=== PATIENT | male | born 1965 | race Caucasian/White ===

== ENCOUNTER 2023-10-06 09:04 | Outpatient (OUT) | payer OTHER, SELFPAY ==
[2023-10-06 09:20] LABS: Basophils Absolute Auto 0.1 10^3/uL (0.0-0.1); Basophils Percent Auto 0.4 % (0.2-2.0); Eosinophils Absolute Auto 0.2 10^3/uL (0.0-0.7); Eosinophils Percent Auto 1.5 % (0.9-7.0); Hematocrit 42.8 % (42.0-54.0); Immature Granulocytes Abs Auto 0.05 10^3/uL (0.00-0.03); Immature Granulocytes Pct Auto 0.4 % (0.0-0.5); Lymphocytes Absolute Auto 1.5 10^3/uL (1.2-3.8); Lymphocytes Percent Auto 13.4 % (20.5-60.0); Mean Corpuscular HGB Conc 32.7 g/dL (29.9-35.2); Mean Corpuscular Hemoglobin 28.6 pg (25.9-34.0); Mean Corpuscular Volume 87.5 fL (80.0-94.0); Mean Platelet Volume 10.3 fL (9.5-13.5); Monocytes Absolute Auto 0.6 10^3/uL (0.3-0.8); Monocytes Percent Auto 5.6 % (1.7-12.0); Neutrophils Absolute Auto 8.9 10^3/uL (1.4-6.5); Neutrophils Percent Auto 78.7 % (43.0-75.0); Platelet Count 327 10^3/uL (150-450); Red Blood Count 4.89 10^6/uL (4.70-6.10); Red Cell Distribution Width 12.7 % (11.0-15.0); White Blood Count 11.3 10^3/uL (4.0-11.0)
[2023-10-06 09:51] LABS: Alanine Aminotransferase 63 U/L (16-63); Albumin Globulin Ratio 0.9; Albumin Level 3.5 g/dL (3.4-5.0); Alkaline Phosphatase 115 U/L (46-116); Anion Gap 12.5; Aspartate Amino Transferase 35 U/L (15-37); Bilirubin Total 0.5 mg/dL (0.2-1.0); Chloride 105 mmol/L (98-107); Chol HDL Ratio 4.1; Cholesterol 182 mg/dL (<=200); Estimated GFR (African America >60 (>=60); Estimated GFR (Non-African Ame >60 (>=60); Free T3 2.19 pg/mL (2.18-3.98); Globulin 3.9 g/dL; Glucose 95 mg/dL (74-106); HDL Cholesterol 44 mg/dL (40-60); Potassium 4.5 mmol/L (3.5-5.1); Sodium 144 mmol/L (136-145); Thyroid Stimulating Hormone 1.331 uIU/mL (0.358-3.740); Total Protein 7.4 g/dL (6.4-8.2); Triglycerides 105 mg/dL (<=150); Uric Acid 8.9 mg/dL (3.5-7.2)
[2023-10-06 10:02] LABS: Estimated Average Glucose 120 mg/dL; Glycohemoglobin A1C 5.8 % (4.5-6.2)
[2023-10-08 12:08] LABS: Insulin 34.4 uIU/mL (2.6-24.9)
== END 2023-10-06 09:05 | disposition home or self-care (01) ==
LOC: LAB 09:07
PROVIDERS: PCP Family Medicine; Visit Provider Family Medicine
DX: Z00.00 Encounter for general adult medical examination without abnormal findings (principal); E78.5 Hyperlipidemia, unspecified; R73.09 Other abnormal glucose; Z12.5 Encounter for screening for malignant neoplasm of prostate
CPT/HCPCS: 36415; 80053; 80061; 83036; 83525; 84436; 84443; 84481; 84550; 85025; G0103

== ENCOUNTER 2023-10-26 13:48 | Outpatient (OUT) | payer OTHER, SELFPAY ==
--- OUTSIDE RECORDS SUMMARY | 2023-10-26 14:04 | XMS_ITS | CCD ---
Author Name Unknown Address [address] [place] [address] Organization [facility] Care Team Providers Care Digital Advertising Analyst Name Role Phone HECTOR SHETH Admitting Unavailable HECTOR SHETH Attending Unavailable HECTOR SHETH Consulting Unavailable [facility] Primary Care Provider JUANA LEAL Admitting Unavailable ELVIS JUANA HNelli Attending Unavailable [facility] Unavailable JUANA LEAL HNelli Attending Unavailable ELVIS JUANA HNelli Referring Unavailable [facility] Primary Care Unavailable MARKER, DR KIM Admitting Unavailable PAYTON, DR RAWLS Primary Care Unavailable MARKER, DR KIM Consulting Unavailable MARKER, DR KIM Attending Unavailable HOY, DR RAWLS Consulting Unavailable HOY, DR RAWLS Attending Unavailable HOY, DR RAWLS Admitting Unavailable PAYTON, DR RAWLS Primary Care Unavailable ZIEBER, DR GANN R Consulting Unavailable Medications Current Medications Medication Drug Class(es) Dates Sig (Normalized) Sig (Original) acetaminophen 325 mg / oxyCODONE hydrochloride 5 mg oral tablet (2 sources) Opioid Agonist Start: 03-23-2020 End: 04-06-2020 take 1 tablet by mouth every six hours as needed for pain, then take 1 tablet by mouth as needed for pain oxyCODONE-acetaminop hen (PERCOCET) 5-325 MG per tablet Indications: Postoperative pain Take 1 tablet by mouth every 6 hours as needed for Pain for up to 14 days. Intended supply: 7 days. Take lowest dose possible to manage pain 28 tablet 0 03/23/2020 04/06/2020 Active calcium chloride 0.0014 meq/ml / potassium chloride 0.004 meq/ml / sodium chloride 0.103 meq/ml / sodium lactate 0.028 meq/ml injectable solution (1 source) Start: 03-23-2020 lactated ringers infusion cephalexin 500 mg oral capsule (2 sources) Cephalosporin Antibacterial Start: 03-23-2020 End: 03-30-2020 take 1 capsule by mouth three times daily cephALEXin (KEFLEX) 500 MG capsule Take 1 capsule by mouth 3 times daily for 7 days 21 capsule 0 03/23/2020 03/30/2020 Active 1 ml diphenhydrAMINE hydrochloride 50 mg/ml cartridge (1 source) Histamine-1 Receptor Antagonist Start: 03-23-2020 End: 03-23-2020 diphenhydrAMINE (BENADRYL) injection 12.5 mg 2 ml fentaNYL 0.05 mg/ml injection (1 source) Opioid Agonist Start: 03-23-2020 fentaNYL (SUBLIMAZE) injection 50 mcg 1 ml HYDROmorphone hydrochloride 1 mg/ml cartridge (1 source) Opioid Agonist Start: 03-23-2020 HYDROmorphone (DILAUDID) injection 0.5 mg 10 ml lidocaine hydrochloride 10 mg/ml injection (1 source) Antiarrhythmic, Amide Local Anesthetic Start: 03-23-2020 End: 03-23-2020 lidocaine PF 1 % injection 1 mL 1 ml meperidine hydrochloride 25 mg/ml cartridge (1 source) Opioid Agonist Start: 03-23-2020 meperidine (DEMEROL) injection 12.5 mg 2 ml metoclopramide 5 mg/ml prefilled syringe (1 source) Dopamine-2 Receptor Antagonist Start: 03-23-2020 End: 03-23-2020 metoclopramide (REGLAN) injection 10 mg 2 ml ondansetron 2 mg/ml injection (1 source) Serotonin-3 Receptor Antagonist Start: 03-23-2020 End: 03-23-2020 ondansetron (ZOFRAN) injection 4 mg sennosides, shelter 8.6 mg oral tablet (2 sources) Start: 03-23-2020 End: 04-06-2020 take 1 tablet by mouth twice daily senna (SENOKOT) 8.6 MG tablet Take 1 tablet by mouth 2 times daily for 14 days 28 tablet 0 03/23/2020 04/06/2020 Active 3 ml sodium chloride 9 mg/ml injection (2 sources) Start: 03-23-2020 sodium chloride flush 0.9 % injection 10 mL tiZANidine 4 mg oral tablet (2 sources) Central alpha-2 Adrenergic Agonist take 1 tablet by mouth every six hours as needed tiZANidine (ZANAFLEX) 4 MG tablet Take 4 mg by mouth every 6 hours as needed 0 Active Completed/Discontinued Medications Medication Drug Class(es) Dates Sig (Normalized) Sig (Original) ketorolac tromethamine 10 mg oral tablet (1 source) Nonsteroidal Anti-inflammatory Drug, Cyclooxygenase Inhibitor End: 03-23-2020 take 1 tablet by mouth every six hours as needed for pain ketorolac (TORADOL) 10 MG tablet Take 10 mg by mouth every 6 hours as needed for Pain 0 03/23/2020 Discontinued (Stop Taking at Discharge) Problems Active Problems Problem Classification Problem Date Documented Date Episodic/Chronic Gout and other crystal arthropathies (1 source) Idiopathic gout, left ankle and foot; Translations: [IDIOPATHIC GOUT LEFT ANKLE AND FOOT] Onset: 03-17-2021 Chronic Osteoarthritis (4 sources) Primary osteoarthritis, right wrist; Translations: [PRIMARY OSTEOARTHRITIS RIGHT WRIST] Onset: 01-26-2022 Chronic Other nervous system disorders (1 source) Postoperative pain ; Translations: [Postoperative pain] Episodic Residual codes; unclassified (1 source) Pain; Translations: [Pain] Episodic Spondylosis; intervertebral disc disorders; other back problems (4 sources) Prolapsed lumbar intervertebral disc; Translations: [Lumbar spondylosis] Onset: 03-17-2020 03-17-2020 Chronic Spondylosis; intervertebral disc disorders; other back problems (2 sources) Lumbar radiculopathy; Translations: [Lumbar radiculopathy] Onset: 03-17-2020 03-17-2020 Episodic Unclassified (3 sources) ENC GEN ADULT EXAM W/O ABNORM FIND; Translations: [ENC GEN ADULT EXAM W/O ABNORM FIND] Onset: 12-09-2018 Past or Other Problems Problem Classification Problem Date Documented Da te Episodic/Chronic Other connective tissue disease (3 sources) Pain in left toe(s); Translations: [PAIN IN LEFT TOES] Onset: 03-15-2021 Episodic Results Test Name Value Interpretation Reference Range Facil ity FLUORO FOR SURGICAL PROCEDUR ESon 03-23-2020 FLUORO FOR SURGICAL PROCEDURES FLUORO FOR SURGICAL PROCEDURES : 03/23/2020 2:56 PM CLINICAL HISTORY: R52 Pain ICD10. COMPARISON: None available. Intraoperative fluoroscopy was provided for Dr. Leal procedure. A total of 5.4 seconds of fluoroscopy was used, with 2 fluoroscopic stills saved. No diagnostic images were obtained. Please see Dr. Leal surgical notes for completeness. Interpreted by: Martín Benoit MD Signed by: Martín Benoit MD 03/23/20 Final result Normal [facility] FLUORO FOR SURGICAL PROCEDURES : 03/23/2020 2:56 PM CLINICAL HISTORY: R52 Pain ICD10. COMPARISON: None available. Intraoperative fluoroscopy was provided for Dr. Leal procedure. A total of 5.4 seconds of fluoroscopy was used, with 2 fluoroscopic stills saved. No diagnostic images were obtained. Please see Dr. Leal surgical notes for completeness. [place], [place] Brendan, Chpo Incoming Radiant Results From [facility]acs - 03/23/2020 4:37 PM EDT FLUORO FOR SURGICAL PROCEDURES : 03/23/2020 2:56 PM CLINICAL HISTORY: R52 Pain ICD10. COMPARISON: None available. Intraoperative fluoroscopy was provided for Dr. Leal procedure. A total of 5.4 seconds of fluoroscopy was used, with 2 fluoroscopic stills saved. No diagnostic images were obtained. Please see Dr. Leal surgical notes for completeness. [place], [place] Surgical Specimenon 03-23-20 20 Surgical Specimen [facility] [address] [place], [place] [id number] FINAL SURGICAL PATHOLOGY REPORT Patient Name: UZIEL REDDY Accession No: [id number] Age Sex: 1965 Location: [facility] Account No: [id number] Collected: 03/23/2020 Med Rec No: [id number] Received: 03/24/2020 Attend Phys: JUANA LEAL Completed: 03/26/2020 Perform Phys: JUANA LEAL FINAL DIAGNOSIS: DISC- INTRAVERTEBRAL DISC MATERIAL WITH DEGENERATIVE CHANGES. ALIFA/ALIFA CLINICAL INFORMATION: Procedure: L4-5 left discectomy. Preoperative Diagnosis: Lumbar disc herniation. SPECIMEN: Disc GROSS DESCRIPTION: Received is one container labeled with the patient's name and designated spine, disc . The specimen consists of portions of pink-white, rubbery soft tissue and possible small fragments of bone 2 x 1.5 x 0.3 cm in aggregate. The specimen is submitted in toto in one cassette following decalcification. ZHOU/MERRILL CPT: 44749 X1 64627 X1 KENDALL DELGADO M.D. 03/26/2020 Electronically signed out by Page 1 of 1 [facility] Comment on above: Performed By: #### S UR #### [facility] [address] [place] [address] COVID-19, NAAon 03-20-2020 COVID-19, LAINEY Not Detected Normal Not Detect [facility] Comment on above: Result Comment: This test was developed and its performance characteristics determined by [employer]. This test has not been FDA cleared or approved. This test has been authorized by FDA under an Emergency Use Authorization (EUA). This test is only authorized for the duration of time the declaration that circumstances exist justifying the authorization of the emergency use of in vitro diagnostic tests for detection of SARS-CoV-2 virus and/or diagnosis of COVID-19 infection under section 564(b)(1) of the Act, 21 U.S.C. 360bbb-3(b)(1), unless the authorization is terminated or revoked sooner. When diagnostic testing is negative, the possibility of a false negative result should be considered in the context of a patient's recent exposures and the presence of clinical signs and symptoms consistent with COVID-19. An individual without symptoms of COVID-19 and who is not shedding SARS-CoV-2 virus would expect to have a negative (not detected) result in this assay. Performed at: [facility] [employer] [facility][1], [place] [id number] Shingle Sawyer: Maris Vallejo MD, Phone: [phone] Performed By: #### I RCOV #### [facility] [address] [place] [address] Basic Metabolic Panelon Anion gap [Moles/Vol] 10 mmol/L Normal 9-15 [facility] Comment on above: Performed By: #### B MP #### [facility] [address] [place] [address] Calcium [Mass/Vol] 9.7 mg/dL Normal 8.5-9.9 [facility] Comment on above: Performed By: #### B MP #### [facility] [address] [place] [address] Chloride [Moles/Vol] 96 mmol/L Normal 95-107 [facility] Comment on above: Performed By: #### B MP #### [facility] [address] [place] [address] CO2 [Moles/Vol] 30 mmol/L Normal 20-31 [facility] Comment on above: Performed By: #### B MP #### [facility] [address] [place] [address] Creatinine [Mass/Vol] 0.66 mg/dL Low 0.70-1.20 [facility] Comment on above: Performed By: #### B MP #### [facility] [address] [place] [address] GFR/1.73 sq M predicted among blacks MDRD (S/P/Bld) [Vol rate/Area] mL/min/{1.73_m2} Normal >60 [facility] Comment on above: Result Comment: >60 mL/min/1.73m2 EGFR, calc. for ages 18 and older using the MDRD formula (not corrected for weight), is valid for stable renal function. Performed By: #### B MP #### [facility] [address] [place] [address] GFR/1.73 sq M.predicted MDRD (S/P/Bld) [Vol rate/Area] mL/min/{1.73_m2} Normal >60 [facility] Comment on above: Result Comment: >60 mL/min/1.73m2 EGFR, calc. for ages 18 and older using the MDRD formula (not corrected for weight), is valid for stable renal function. Performed By: #### B MP #### [facility] [address] [place] [address] Glucose [Mass/Vol] 83 mg/dL Normal 70-99 [facility] Comment on above: Performed By: #### B MP #### [facility] [address] [place] [address] Potassium [Moles/Vol] 4.3 mmol/L Normal 3.4-4.9 [facility] Comment on above: Performed By: #### B MP #### [facility] [address] [place] [address] Sodium [Moles/Vol] 136 mmol/L Normal 135-144 [facility] Comment on above: Performed By: #### B MP #### [facility] [address] [place] [address] Urea nitrogen [Mass/Vol] 14 mg/dL Normal 6-20 [facility] Comment on above: Performed By: #### B MP #### [facility] [address] [place] [address] CBC With Platelet and Differ entialon 03-17-2020 RBC morphology finding Nom (Bld) Normal Normal [facility] Comment on above: Performed By: #### C BCWD #### [facility] [address] [place] [address] Atypical Lymphs 5 % Normal [facility] Comment on above: Performed By: #### C BCWD #### [facility] [address] [place] [address] Basophils (Bld) [#/Vol] 0.0 10*3/uL Normal 0.0-0.2 [facility] Comment on above: Performed By: #### C BCWD #### [facility] [address] [place] [address] Basophils/100 WBC (Bld) 0.6 % Normal [facility] Comment on above: Performed By: #### C BCWD #### [facility] [address] [place] [address] Eosinophils (Bld) [#/Vol] 0.1 10*3/uL Normal 0.0-0.7 [facility] Comment on above: Performed By: #### C BCWD #### [facility] [address] [place] [address] Eosinophils/100 WBC (Bld) 1.0 % Normal [facility] Comment on above: Performed By: #### C BCWD #### [facility] [address] [place] [address] Lymphocytes (Bld) [#/Vol] 1.4 10*3/uL Normal 1.0-4.8 [facility] Comment on above: Performed By: #### C BCWD #### [facility] [address] [place] [address] Lymphocytes/100 WBC (Bld) 7.0 % Normal [facility] Comment on above: Performed By: #### C BCWD #### [facility] [address] [place] [address] Monocytes (Bld) [#/Vol] 1.0 10*3/uL Critically high 0.2-0.8 [facility] Comment on above: Performed By: #### C BCWD #### [facility] [address] [place] [address] Monocytes/100 WBC (Bld) 9.0 % Normal [facility] Comment on above: Performed By: #### C BCWD #### [facility] [address] [place] [address] Neutrophils (Bld) [#/Vol] 8.9 10*3/uL Critically high 1.4-6.5 [facility] Comment on above: Performed By: #### C BCWD #### [facility] [address] [place] [address] Neutrophils/100 WBC (Bld) 78.0 % Normal [facility] Comment on above: Performed By: #### C BCWD #### [facility] [address] [place] [address] Platelet Slide Review Normal Normal [facility] Comment on above: Performed By: #### C BCWD #### [facility] [address] [place] [address] Smudge Cells 9.9 Normal [facility] Comment on above: Performed By: #### C BCWD #### [facility] [address] [place] [address] Erythrocyte distribution width (RBC) [Ratio] 14.0 % Normal 11.5-14.5 [facility] Comment on above: Performed By: #### C BCWD #### [facility] [address] [place] [address] Hematocrit (Bld) [Volume fraction] 47.7 % Normal 42.0-52.0 [facility] Comment on above: Performed By: #### C BCWD #### [facility] [address] [place] [address] Hemoglobin (Bld) [Mass/Vol] 15.6 g/dL Normal 14.0-18.0 [facility] Comment on above: Performed By: #### C BCWD #### [facility] [address] [place] [address] MCH (RBC) [Entitic mass] 29.7 pg Normal 27.0-31.3 [facility] Comment on above: Performed By: #### C BCWD #### [facility] [address] [place] [address] MCHC (RBC) [Mass/Vol] 32.8 % Low 33.0-37.0 [facility] Comment on above: Performed By: #### C BCWD #### [facility] [address] [place] [address] MCV (RBC) [Entitic vol] 90.7 fL Normal 80.0-100.0 [facility] Comment on above: Performed By: #### C BCWD #### [facility] [address] [place] [address] Platelets (Bld) [#/Vol] 320 10*3/uL Normal 130-400 [facility] Comment on above: Performed By: #### C BCWD #### [facility] [address] [place] [address] RBC (Bld) [#/Vol] 5.26 10*6/uL Normal 4.70-6.10 [facility] Comment on above: Performed By: #### C BCWD #### [facility] [address] [place] [address] WBC (Bld) [#/Vol] 11.4 10*3/uL Critically high 4.8-10.8 [facility] Comment on above: Performed By: #### C BCWD #### [facility] [address] [place] [address] COVID-19, NAAon 03-17-2020 Source Swab OP swab Normal [facility] Comment on above: Performed By: #### I RCOV #### [facility] [address] [place] [address] Partial Thromboplastin Timeo n 03-17-2020 aPTT Coag (Bld) [Time] 32.3 s Normal 24.4-36.8 [facility] Comment on above: Performed By: #### P TT #### [facility] [address] [place] [address] Prothrombin Timeon 0 INR Coag (PPP) [Relative time] 1.0 {INR} Normal [facility] Comment on above: Performed By: #### P T #### [facility] [address] [place] [address] PT Coag (PPP) [Time] 12.9 s Normal 12.3-14.9 [facility] Comment on above: Performed By: #### P T #### [facility] [address] [place] [address] Type and 3 cell Screen OB Ca ptureon 03-17-2020 Type and 3 cell Screen OB Capture PATIENT: BARRY Amezcua LOC: [facility]# : [id number] : 1965 SEX: M ORDERED BY: ERIC Velarde ORDERED : 03/17/2020 13:03 COLLECTED: 03/17/2020 13:04 ORDER : [id number] RECEIVED : 03/17/2020 20:34 TEST NAME RESULT UNITS RANGES ABN FL ST ABORH Capture O POS F Antibody 3 Cell Scrn Captu NEG F Normal [facility] Comment on above: Performed By: #### T SO3C #### [facility] [address] [facility] [address] Vital Signs Date Time Vital Sign Value Performing Clinician Shira gamboa 03-23-2020 17:15-0400 BP Diastolic 79 mm[Hg] [facility] [place] 03-23-2020 17:15-0400 BP Systolic 132 mm[Hg] [facility] [place] 03-23-2020 17:15-0400 Pulse (Heart Rate) 63 /min [facility] [place] 03-23-2020 17:15-0400 Pulse Oximetry 96 % [facility] [place] 03-23-2020 17:15-0400 Respiratory Rate 20 /min [place] 03-23-2020 16:30-0400 Body Temperature 98.29 [degF] [facility] [place] 03-23-2020 10:46-0400 BMI (Body Mass Index) 36.62 kg/m2 [facility] [place] 03-23-2020 10:46-0400 Body weight 122.47 kg [facility] [place] 03-23-2020 10:46-0400 Height 182.9 cm [facility] [place] Encounters Encounter Date Encounter Type Care Provider Facility Start: 01-26-2022 End: 01-27-[address] [facility] Facility:[facility] Start: 03-15-2021 End: 03-16-[address] JUDY ONEILL Facility:[facility] Start: 03-23-2020 End: 03-23-2020 Patient encounter procedure JUANA LEAL [facility] Start: 03-23-2020 End: 03-23-2020 Subsequent hospital visit by physician Juana Leal Work Phone: [facility] Comment on above: Postoperative pain ( Primary Dx) Start: 03-23-2020 End: 03-26-2020 Patient encounter procedure JUANA Wesley LEAL [facility] Start: 03-23-2020 End: 03-25-2020 Subsequent hospital visit by physician Juana Leal Work Phone: [facility] Comment on above: Pain Start: 12-09-2018 End: 12-10-2018 Patient encounter procedure HECTOR SHETH Facility:01 Procedures Date Procedure Procedure Detail Performing Clinician Start: 03-23-2020 INCENTIVE SPIROMETRY RT JUANA ELVIS Start: 03-23-2020 DISCHARGE PATIENT JUANA YO O Start: 03-23-2020 FLUORO FOR SURGICAL PROCEDURES JUANA ELVIS Start: 03-23-2020 Level iv surg pathol ogy gross&microscopic exam JUANA ELVIS Start: 03-23-2020 INCENTIVE SPIROMETRY RT JUANA ELVIS Start: 03-23-2020 Fluoroscopy during operation Juana Wesley Elvis Work Phone: Start: 03-23-2020 PULSE OXIMETRY SPOT CHECK JUANA ELVIS Start: 03-23-2020 Continuous pulse oximetry JUANA ELVIS Start: 03-23-2020 ASSESS JUANA ELVIS Start: 03-23-2020 BEDREST JUANA ELVIS Start: 03-23-2020 ENCOURAGE DEEP BREAT GEORGE AND COUGHING JUANA ELVIS Start: 03-23-2020 INCENTIVE SPIROMETRY RT JUANA ELVIS Start: 03-23-2020 INITIATE OXYGEN THER APY PROTOCOL JUANA ELVIS Start: 03-23-2020 NEURO/VASCULAR CHECKS B O ELVIS Start: 03-23-2020 NOTIFY PHYSICIAN (SPECIFY) JUANA ELVIS Start: 03-23-2020 NURSING COMMUNICATION B O ELVIS Start: 03-23-2020 VITAL SIGNS JUANA ELVIS Plan of Treatment Date Care Activity Detail Author Start: 04-13-2020 Influenza vaccination Flu vaccine (# 1) [place], [place] Start: 04-09-2020 End: 04-09-2020 Office Visit 04/09/2020 Office Visit Neurosurgery Juana Leal MD [address], [address] [place] [address] [employer] Start: 2017 Screening for malign ant neoplasm of colon Colon cancer screen colonoscopy [place], [place] Start: 2017 Shingles Vaccine (1 of 2) Delgado gles Vaccine (1 of 2) [place], [place] Start: 2007 Lipid panel Lipid screen [place], [place] Start: 1986 DTaP/Tdap/Td vaccine (1 - Tdap) DTaP/Tdap/Td vaccine (1 - Tdap) [place], [place] Start: 1982 HIV screening HIV screen [place], [place] Incentive spirometry Incentive s pirometry Respiratory Care Routine Every 2hr while awake until discontinued starting 03/23/2020 [place] Comment on above: Every 2hr while awak e until discontinued starting 03/23/2020 End: 03-23-2020 Intermittent pulse oximetry Pulse Oximetry Spot Check Respiratory Care Routine One Time for 1 Occurrences starting 03/23/2020 until 03/23/2020 [place] Comment on above: One Time for 1 Occur rences starting 03/23/2020 until 03/23/2020 Oxygen therapy Initiate Oxygen Therapy Protocol Respiratory Care Routine Daily until discontinued starting 03/23/2020 [place] Comment on above: Daily until disconti nued starting 03/23/2020 Phase I & II - meter ed glucose Phase I & II - metered glucose Point of Care Testing Routine As Needed until discontinued starting 03/23/2020 [place] Comment on above: As Needed until disc ontinued starting 03/23/2020 Surgical Pathology Surgical Path ology Lab Routine Release Upon Ordering for 1 Occurrences starting 03/23/2020 [place] Comment on above: Release Upon Orderin g for 1 Occurrences starting 03/23/2020 Payers Date Payer Category Payer Unknown [id number] 1965 Unknown [id number] 1965 Unknown [id number] 1965 Unknown [id number] 1965 Unknown [id number] [id number] 1957 Private Health Insurance [id number] 1957 Unknown [id number] Unknown [id number] Social History Date Type Detail Facility Start: 03-23-2020 End: 03-24-2020 Tobacco smoking status NHIS Former smoker [place], [place] History of tobacco use Cigar Smoker [place], [place] Start: 03-23-2020 End: 03-24-2020 Tobacco use and exposure Never used [place], [place] Sex Assigned At Not on file [place] Exposure to SARS-CoV-2 (event) Not sure [place] Clinical Note 01-26-2022 Note Date & Type Note Facility 01-26-2022 Note PROCEDURE: XR WRIST RT MIN 3 V HISTORY: Osteoarthritis ; right wrist pain and swelling, no known injury COMPARISON: None. FINDINGS: BONES:No fracture, acute abnormality, or significant arthropathy. SOFT TISSUES:No visible soft tissue swelling. EFFUSION:None visible. OTHER: Negative. IMPRESSION: 1. No acute bone abnormality or significant degenerative changes. 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 Therefore on the day of surgery: 1) you should be accompanied by a responsible adult upon discharge and for 24 hours after surgery. Do not drive a motor vehicle, operate machinery, power tools or appliance, drink alcoholic beverages, or make critical decisions for 24 hours 2) Be aware of dizziness, which may cause a fall. Change positions slowly. 3) Eating: you may resume your regular diet but it is better to increase intake slowly with mild foods and working up to your regular diet. 4) Nausea/Vomiting: Nausea and vomiting may occur as you become more active or begin to increase food intake. If this should happen, decrease activity and return to liquids. 5) Pain: Your surgeon may have given you a prescription for pain medication. Take pain medication with food as prescribed. Pain medication may cause constipation, so drink plenty of fluids. You may need to use laxatives. 6) Ice: You may use a cool pack to operative site for 20 min 5-6 times a day as needed for comfort. 8) Dressing: Change dressing as frequently as needed to keep clean and dry. Remove all sticky tape in 5 days. May shower in three days. Do not put soap or soak on the incision until healed. 9) INCREASE ACTIVITY TOLERATED AND INSTRUCTED. GO BY HOW YOU FEEL. 10) See physical therapist when advised by your physician 11) Call your doctor at [phone] for an appointment (or follow up as scheduled). 12) If have an order for X-Rays have done within a week before your follow up appointment. ? Contact OFFICE IF o Increased redness, swelling, excess drainage, and/or pain to surgery site. As well as new onset fevers and or chills. These could signify an infection. o Calf or thigh tenderness to touch as well as increased swelling or redness. This could signify a clot formation. o Numbness or tingling to an area around the incision site or below the incision site (toes). Or ifthe operative extremity becomes cold, blue. o Any rash appears, increased or new onset nausea/vomiting occur. This may indicate a reaction to amedication. o Temp is 38.5 C (101F) 12) If you have any concerns or questions, please call OFFICE. The 24- hour phone is [phone] 13) If you are unable to contact your surgeon, in an emergency situation, go to the nearest hospital emergency room. 14) no driving 15) shower on Sunday * Attachments The following attachments cannot be sent through Care Everywhere. * Coronavirus Disease (COVID-19): General Info (Irish) documented in this encounter History of Present Illness * aKcey Espinoza RN - 03/23/2020 5:48 PM EDT DC instructions given to pt. 3 signed scripts given to pt. One for Percocet. Voices understanding * Kacey Espinoza RN - 03/23/2020 5:46 PM EDT Void without diff. Assisted in dressing. awaiting in parking lot * Kacey Espinoza RN - 03/23/2020 5:21 PM EDT Pt assisted up to bathroom. Gait slow but steady. waiting in parking lot. Inc mid low back OTAand surgically glued * Kacey Espinoza RN - 03/23/2020 5:00 PM EDT Pt taking po without diff. Much enc given as pt cont to rate pain an 8. Po pills given by PACU. Will monitor * Suzie Ontiveros RN - 03/22/2020 3:40 PM EDT PAT call placed to patient, Yellow PAT sheet reviewed with patient who verbalizes understanding. documented in this encounter Assessments Diagnosis Postoperative pain Other acute postoperative pain Diagnosis Pain Generalized pain Reason for Referral Status Reason Specialty Diagnoses / Procedures Referred By Contact Referred To Contact Pending Review Radiology Diagnoses Pain Procedures Fluoro For Surgical Procedures Juana Leal MD [address], [address] [place] [address] Additional Source Comments (unrecognized sect ion and content) No Status Records FoundNo Status Records FoundNo Status Records FoundNo Status Records Found INFORMATION SOURCE (unrecogn ized section and content) DATE CREATED AUTHOR 12/14/2018 [facility] DATE CREATED AUTHOR AUTHOR'S ORGANIZ ATION 03/20/2020 [facility] DATE CREATED AUTHOR AUTHOR'S ORGANIZ ATION 03/26/2020 [facility] [place] DATE CREATED AUTHOR AUTHOR'S ORGANIZ ATION 01/28/2022 [facility] Reason for Visit (unrecogniz ed section and content) Status Reason Specialty Diagnoses / Procedures Referre d By Contact Referred To Contact Diagnoses Lumbar disc herniation LUMBAR DISC HERNIATION Procedures NE LAMNOTMY INCL W/DCMPRSN NRV ROOT 1 INTRSPC LUMBR L 4-5 LEFT DISKECTOMY 1 HOUR/ 1 C-ARM ([facility]) Juana Leal MD [address], [address] [place] [id number] [facility] FOR RECORDS PERTAINING TO PATIENTS WHO ARE OR HAVE BEEN ENROLLED IN A CHEMICAL DEPENDENCY/SUBSTANCEABUSE PROGRAM, SOME INFORMATION MAY BE OMITTED. This clinical summary was aggregated from multiple sources. Caution should be exercised in using it in the provision of clinical care. This summary normalizes information from multiple sources, and as a consequence, information in this document may materially change the coding, format and clinical context of patient data. In addition, data may be omitted in some cases. CLINICAL DECISIONS SHOULD BE BASED ON THE PRIMARY CLINICAL RECORDS. [employer] provides no warranty or guarantee of the accuracy or completeness of information in this document.
== END 2023-10-26 13:49 | disposition home or self-care (01) ==
LOC: MN 13:50
PROVIDERS: PCP Family Medicine
DX: E11.8 Type 2 diabetes mellitus with unspecified complications (principal)
CPT/HCPCS: G0108

== ENCOUNTER 2024-11-11 11:20 | Outpatient (OUT) | payer SELFPAY ==
--- NOTE | 2024-11-11 11:24 | XR_ITS ---
The [address] [address] Patient Name: UZIEL REDDY MRN: [id number] date: 1965 Sex: M Assigned Patient Location: RAD Current Patient Location: [facility] Accession/Order Number: [id number] Exam Date: 11/11/2024 11:53 Report Date: 11/11/2024 11:55 At the request of: SINAI CAIN MD Procedure: XR knee LT 3V LEFT KNEE - 3 views COMPARISON: None CLINICAL DATA: Chronic left knee pain, greater laterally. No injury. AP, lateral and internal views were obtained. There is osteopenia. There is no acute fracture or dislocation. There is at least moderate narrowing of the medial tibiofemoral compartment and severe at the lateral where there is subchondral sclerosis. Marginal spurring is visualized, greatest at the patellofemoral joint. A small amount of joint fluid is noted. No focal soft tissue swelling is seen. XR/XR knee LT 3V IMPRESSION: OSTEOPENIA AND DEGENERATIVE CHANGES. Impression dictated by: Henna Avila M.D.11/11/2024 11:55 AM Dictation Location: [place] [address] Electronically authenticated by: [id number] Y Date: 11/11/2024 11:55
--- OUTSIDE RECORDS SUMMARY | 2024-11-11 11:41 | XMS_ITS | CCD ---
Author Organization [facility] Care Team Providers Care Account Resolution Analyst Name Role Phone HECTOR SHETH Admitting Unavailable HECTOR SHETH Attending Unavailable HECTOR SHETH Consulting Unavailable Sinai Dupont Primary Care Provider JUANA LEAL Admitting Unavailable JUANA LEAL Attending Unavailable SINAI DUPONT Primary Care Unavailable JUANA LEAL Attending Unavailable JUANA LELA HNelli Referring Unavailable [facility]AI DUPONT Primary Care Unavailable MARKER, DR KIM Admitting Unavailable PAYTON, DR RAWLS Primary Care Unavailable MARKER, DR KIM Consulting Unavailable MARKER, DR KIM Attending Unavailable HOY, DR RAWLS Consulting Unavailable HOY, DR RAWLS Attending Unavailable HOY, DR RAWLS Admitting Unavailable PAYTON, DR RAWLS Primary Care Unavailable ZIEBER, DR SANJUANITA Monte Consulting Unavailable MD Sinai Dupont Primary Care Provider LEWIS Moody Attending Provider Celina Moody Admitting Unavailable Celina Moody Attending Unavailable [facility] Primary Care Unavailable Medications Current Medications Medication Drug Class(es) [...] days 21 capsule 0 03/23/2020 03/30/2020 Active diclofenac sodium 75 mg delayed release oral tablet (2 sources) Nonsteroidal Anti-inflammatory Drug Start: 03-15-2024 Diclofenac Sodium Active MG PO March 15, 2024 12:00am 1 ml diphenhydrAMINE hydrochloride 50 mg/ml cartridge [...] End: 03-23-2020 ondansetron (ZOFRAN) injection 4 mg predniSONE 50 mg oral tablet (2 sources) Start: 03-15-2024 take 50 mg by mouth once daily Prednisone Active 50 MG PO Daily 3 March 15, 2024 12:00am sennosides, senior care 8.6 mg oral tablet (2 sources) Start: [...] OSTEOARTHRITIS RIGHT WRIST] Onset: 01-26-2022 Chronic Other connective tissue disease (2 sources) Other bursitis of elbow, right elbow; Translations: [Bursitis of right elbow] 03-15-2024 Episodic Other nervous system disorders (1 source) Postoperative pain ; Translations: [Postoperative pain] Episodic Other non-traumatic joint disorders (2 sources) Pain in elbow; Translations: [Pain in right elbow] 03-15-2024 Episodic Other non-traumatic joint disorders (1 source) Pain in right elbow; Translations: [Pain in right elbow] Onset: 03-15-2024 Episodic Residual codes; unclassified (1 source) Pain; [...] Name Value Interpretation Reference Range Facil ity XR elbow RT min 3V*on 2023 XR elbow RT min 3V* [facility] [place] [address] [place] [address] XRay Report Signed Patient: Uziel Reddy MR#: [id number] : 1965 Acct:[id number] Age/Sex: 58 / M ADM Date: 03/15/24 Loc: XDUCLY Room: Type: [facility] Attending Dr: Celina Moody APRN Copies to: Celina Moody APRN Ordering Provider: Celina Moody APRN Date of Service: 03/15/24 XR/XR elbow RT min 3V*: M25.521 - Pain in right elbow 4 views RIGHTelbow plain film COMPARISON :None HISTORY: RIGHT elbow pain and swelling for 3 days. No injury ACUTE FINDINGS: None DEGENERATIVE CHANGE: Unremarkable SOFT TISSUE FINDINGS: Olecranon soft tissue swelling/bursitis. JOINT EFFUSION: None POSTOP CHANGES: None BONE MINERALIZATION: Adequate XR/XR elbow RT min 3V* IMPRESSION: Olecranon soft tissue swelling/bursitis. Impression dictated by: Martín Jimenez M.D.03/15/2024 1:14 PM Dictation Location: [place] [address] Transcribed By: [facility] 03/15/24 1314 Dictated By: Martín Jimenez DO 03/15/24 1313 Signed By: 03/15/24 1314 Normal [facility] FLUORO FOR SURGICAL PROCEDUR ESon 03-23-2020 FLUORO FOR SURGICAL PROCEDURES FLUORO FOR SURGICAL PROCEDURES : 03/23/2020 2:56 PM CLINICAL HISTORY: R52 Pain ICD10. COMPARISON: None available. Intraoperative fluoroscopy was provided for Dr. Elvis calix. A total of 5.4 seconds of fluoroscopy was used, with 2 fluoroscopic stills saved. No diagnostic images were obtained. Please see Dr. Leal surgical notes for completeness. Interpreted by: Martín Benoit MD Signed by: Martín Benoit MD 03/23/20 Final result Normal [facility] FLUORO FOR SURGICAL PROCEDURES : 03/23/2020 2:56 PM CLINICAL HISTORY: R52 Pain ICD10. COMPARISON: None available. Intraoperative fluoroscopy was provided for Dr. Elvis calix. A total of 5.4 seconds of fluoroscopy was used, with 2 fluoroscopic stills saved. No diagnostic images were obtained. Please see Dr. Leal surgical notes for completeness. [place], [place] Brendan, Chpo Incoming Radiant Results From [facility] - 03/23/2020 4:37 PM EDT FLUORO FOR SURGICAL PROCEDURES : 03/23/2020 2:56 PM CLINICAL HISTORY: R52 Pain ICD10. COMPARISON: None available. Intraoperative fluoroscopy was provided for Dr. Elvis calix. A total of 5.4 seconds of fluoroscopy was used, with 2 fluoroscopic stills saved. No diagnostic images were obtained. Please see Dr. Leal surgical notes for completeness. [place], [place] Surgical Specimenon 03-23-20 Surgical Specimen [facility] [address] [place] [address] FINAL SURGICAL PATHOLOGY REPORT Patient Name: UZIEL REDDY Accession No: [id number] Age Sex: 1965 Location[facility] Account No: [id number] Collected: 03/23/2020 Med Rec No: [id number] Received: 03/24/2020 Attend Phys: JUANA LEAL Completed: [...] in one cassette following decalcification. ZHOU/MERRILL CPT: 24306 X1 57388 X1 KENDALL DELGADO M.D. 03/26/2020 Electronically signed out by Page 1 of 1 [facility] Comment on above: Performed By: #### S UR #### [facility] [address] [place] [address] COVID-19, NAAon 03-20-2020 COVID-19, LAINEY Not Detected Normal Not Detect [facility] Comment on above: Result Comment: This test was developed and its performance characteristics determined by [employer]. This test has not been FDA cleared [...] detected) result in this assay. Performed at: [facility], [place] [id number] [employer] Estimator: Maris Vallejo MD, Phone: [phone] Performed By: #### I RCOV #### [facility] [address] [place] [address] Basic Metabolic Panelon Anion gap [Moles/Vol] 10 mmol/L Normal 9-15 [facility] Comment on above: Performed By: #### B MP #### [facility] [address] [place] [address] Calcium [Mass/Vol] 9.7 mg/dL Normal 8.5-9.9 [facility] Comment on above: Performed By: #### B MP #### [facility] [address] [place] [address] Chloride [Moles/Vol] 96 mmol/L Normal 95-107 [facility] Comment on above: Performed By: #### B MP #### [facility] [address] [place] [address] CO2 [Moles/Vol] 30 mmol/L Normal 20-31 [facility] Comment on above: Performed By: #### B MP #### [facility] [address] [place] [address] Creatinine [Mass/Vol] 0.66 mg/dL Low 0.70-1.20 [facility] Comment on above: Performed By: #### B MP #### [facility] [address] [place] [address] GFR/1.73 sq M predicted among blacks MDRD (S/P/Bld) [Vol rate/Area] mL/min/{1.73_m2} Normal >60 [facility] Comment on above: Result Comment: >60 mL/min/1.73m2 EGFR, calc. for ages 18 and older using the MDRD formula (not corrected for weight), is valid for stable renal function. Performed By: #### B MP #### [facility] [address] [place] [address] GFR/1.73 sq M.predicted MDRD (S/P/Bld) [Vol rate/Area] mL/min/{1.73_m2} Normal >60 [facility] Comment on above: Result Comment: >60 mL/min/1.73m2 EGFR, calc. for ages 18 and older using the MDRD formula (not corrected for weight), is valid for stable renal function. Performed By: #### B MP #### [facility] [address] [place] [address] Glucose [Mass/Vol] 83 mg/dL Normal 70-99 [facility] Comment on above: Performed By: #### B MP #### [facility] [address] [place] [address] Potassium [Moles/Vol] 4.3 mmol/L Normal 3.4-4.9 [facility] Comment on above: Performed By: #### B MP #### [facility] [address] [place] [address] Sodium [Moles/Vol] 136 mmol/L Normal 135-144 [facility] Comment on above: Performed By: #### B MP #### [facility] [address] [place] [address] Urea nitrogen [Mass/Vol] 14 mg/dL Normal 6-20 [facility] Comment on above: Performed By: #### B MP #### [facility] [address] [place] [address] CBC With Platelet and Differ entialon 03-17-2020 RBC morphology finding Nom (Bld) Normal Normal [facility] Comment on above: Performed By: #### C BCWD #### [facility] [address] [place] [address] Atypical Lymphs 5 % Normal [facility] Comment on above: Performed By: #### C BCWD #### [facility] [address] [place] [address] Basophils (Bld) [#/Vol] 0.0 10*3/uL Normal 0.0-0.2 [facility] Comment on above: Performed By: #### C BCWD #### [facility] [address] [place] [address] Basophils/100 WBC (Bld) 0.6 % Normal [facility] Comment on above: Performed By: #### C BCWD #### [facility] [address] [place] [address] Eosinophils (Bld) [#/Vol] 0.1 10*3/uL Normal 0.0-0.7 [facility] Comment on above: Performed By: #### C BCWD #### [facility] [address] [place] [address] Eosinophils/100 WBC (Bld) 1.0 % Normal [facility] Comment on above: Performed By: #### C BCWD #### [facility] [address] [place] [address] Lymphocytes (Bld) [#/Vol] 1.4 10*3/uL Normal 1.0-4.8 [facility] Comment on above: Performed By: #### C BCWD #### [facility] [address] [place] [address] Lymphocytes/100 WBC (Bld) 7.0 % Normal [facility] Comment on above: Performed By: #### C BCWD #### [facility] [address] [place] [address] Monocytes (Bld) [#/Vol] 1.0 10*3/uL Critically high 0.2-0.8 [facility] Comment on above: Performed By: #### C BCWD #### [facility] [address] [place] [address] Monocytes/100 WBC (Bld) 9.0 % Normal [facility] Comment on above: Performed By: #### C BCWD #### [facility] [address] [place] [address] Neutrophils (Bld) [#/Vol] 8.9 10*3/uL Critically high 1.4-6.5 [facility] Comment on above: Performed By: #### C BCWD #### [facility] [address] [place] [address] Neutrophils/100 WBC (Bld) 78.0 % Normal [facility] Comment on above: Performed By: #### C BCWD #### [facility] [address] [place] [address] Platelet Slide Review Normal Normal [facility] Comment on above: Performed By: #### C BCWD #### [facility] [address] [place] [address] Smudge Cells 9.9 Normal [facility] Comment on above: Performed By: #### C BCWD #### [facility] [address] [place] [address] Erythrocyte distribution width (RBC) [Ratio] 14.0 % Normal 11.5-14.5 [facility] Comment on above: Performed By: #### C BCWD #### [facility] [address] [place] [address] Hematocrit (Bld) [Volume fraction] 47.7 % Normal 42.0-52.0 [facility] Comment on above: Performed By: #### C BCWD #### [facility] [address] [place] [address] Hemoglobin (Bld) [Mass/Vol] 15.6 g/dL Normal 14.0-18.0 [facility] Comment on above: Performed By: #### C BCWD #### [facility] [address] [place] [address] MCH (RBC) [Entitic mass] 29.7 pg Normal 27.0-31.3 [facility] Comment on above: Performed By: #### C BCWD #### [facility] [address] [place] [address] MCHC (RBC) [Mass/Vol] 32.8 % Low 33.0-37.0 [facility] Comment on above: Performed By: #### C BCWD #### [facility] [address] [place] [address] MCV (RBC) [Entitic vol] 90.7 fL Normal 80.0-100.0 [facility] Comment on above: Performed By: #### C BCWD #### [facility] [address] [place] [address] Platelets (Bld) [#/Vol] 320 10*3/uL Normal 130-400 [facility] Comment on above: Performed By: #### C BCWD #### [facility] [address] [place] [address] RBC (Bld) [#/Vol] 5.26 10*6/uL Normal 4.70-6.10 [facility] Comment on above: Performed By: #### C BCWD #### [facility] [address] [place] [address] WBC (Bld) [#/Vol] 11.4 10*3/uL Critically high 4.8-10.8 [facility] Comment on above: Performed By: #### C BCWD #### [facility] [address] [place] [address] COVID-19, NAAon 03-17-2020 Source Swab OP swab Normal [facility] Comment on above: Performed By: #### I RCOV #### [facility] [address] [place] [address] Partial Thromboplastin Timeo n 03-17-2020 aPTT Coag (Bld) [Time] 32.3 s Normal 24.4-36.8 [facility] Comment on above: Performed By: #### P TT #### [facility] [address] [place] [address] Prothrombin Timeon 0 INR Coag (PPP) [Relative time] 1.0 {INR} Normal [facility] Comment on above: Performed By: #### P T #### [facility] [address] [place] [address] PT Coag (PPP) [Time] 12.9 s Normal 12.3-14.9 [facility] Comment on above: Performed By: #### P T #### [facility] [address] [place] [address] Type and 3 cell Screen OB Ca ptureon 03-17-2020 Type and 3 cell Screen OB Capture PATIENT: BARRY Amezcua LOC: [facility], BILL# : [id number] : 1965 SEX: M ORDERED BY: ERIC MILY Prachi ORDERED : 03/17/2020 13:03 COLLECTED: 03/17/2020 13:04 ORDER : [id number] RECEIVED : 03/17/2020 20:34 TEST NAME RESULT UNITS RANGES ABN FL ST ABORH Capture O POS F Antibody 3 Cell Scrn Captu NEG F Normal [facility] Comment on above: Performed By: #### T SO3C #### [facility] [address] [place] [address] Vital Signs Date Time Vital Sign Value Performing Clinician Facility 03-15-2024 12:25-0400 Body height 182.88 cm MD Sinai Dupont Work Phone: [facility] 03-15-2024 12:25-0400 Body mass index (BMI) [Ratio] 35.2 kg/m2 MD S[facility] Dupont Work Phone: [facility] 03-15-2024 12:25-0400 Body temperature 98.4 [degF] MD Sinai Dupont Work Phone: [facility] 03-15-2024 12:25-0400 Body weight 117.93 kg MD Sinai Dupont Work Phone: [facility] 03-15-2024 12:25-0400 Diastolic blood pressure 80 mm[Hg] MD Sinai Dupont Work Phone: [facility] 03-15-2024 12:25-0400 Heart rate 66 /min MD [facility] Dupont Work Phone: [facility] 03-15-2024 12:25-0400 Respiratory rate 16 /min MD Sinai Dupont Work Phone: [facility] 03-15-2024 12:25-0400 SaO2% (BldA) [Mass fraction] 97 % MD Sinai Dupont Work Phone: [facility] 03-15-2024 12:25-0400 Systolic blood pressure 121 mm[Hg] MD [facility] Dupont Work Phone: [facility] 03-23-2020 17:15-0400 BP Diastolic 79 mm[Hg] [facility] [place] [facility] [place] 03-23-2020 17:15-0400 BP Systolic 132 mm[Hg] Juana Elvis [facility] [place] 03-23-2020 17:15-0400 Pulse (Heart Rate) 63 /min Juana Elvis [facility] [place] 03-23-2020 17:15-0400 Pulse Oximetry 96 % [facility] [place] [facility] [place] 03-23-2020 17:15-0400 Respiratory Rate 20 /min [facility]ana [facility] [place] 03-23-2020 16:30-0400 Body Temperature 98.29 [degF] Juana Elvis [facility] [place] 03-23-2020 10:46-0400 BMI (Body Mass Index) 36.62 kg/m2 Juana Elvis [facility] [place] 03-23-2020 10:46-0400 Body weight 122.47 kg [facility] [place] [facility] [place] 03-23-2020 10:46-0400 Height 182.9 cm Juana Elvis [facility] [place] Encounters Encounter Date Encounter Type Care Provider Facility Start: 03-15-2024 End: 03-15-2024 ambulatory MD Sinai Dupont Work Phone: [facility] Work Phone: Start: 03-15-2024 End: 03-15-2024 Patient encounter procedure MD Sinai Dupont Work Phone: [facility] Work Phone: Start: 03-15-2024 End: 03-15-2024 ambulatory MD Sinai Dupont Work Phone: [facility] Work Phone: Start: 03-15-2024 End: 03-15-2024 Patient encounter procedure MD Sinai Dupont Work Phone: [facility] Work Phone: Start: 01-26-2022 End: 01-27-[address] SINAI DUPONT Facility:[facility] Start: 03-15-2021 End: 03-16-[address] JUDY ONEILL Facility:[facility] Start: 03-23-2020 End: 03-23-2020 Patient encounter procedure [facility] Start: 03-23-2020 End: 03-23-2020 Subsequent hospital visit by physician Juana Leal Work Phone: [facility] Comment on above: Postoperative pain ( Primary Dx) Start: 03-23-2020 End: 03-26-2020 Patient encounter procedure [facility] Start: 03-23-2020 End: 03-25-2020 Subsequent hospital visit by physician Juana Leal Work Phone: [facility] Comment on above: Pain Start: 12-09-2018 End: 12-10-2018 Patient encounter procedure HECTOR Selene SHETH Facility:01 Procedures Date Procedure Procedure Detail Performing Clinician Start: 03-15-2024 Plain X-ray of right elbow MD [facility] Dupont Work Phone: Start: 03-23-2020 INCENTIVE SPIROMETRY RT JUANA ELVIS Start: 03-23-2020 DISCHARGE PATIENT JUANA YO O Start: 03-23-2020 FLUORO FOR SURGICAL PROCEDURES JUANA ELVIS Start: 03-23-2020 Level iv surg pathol ogy gross&microscopic exam JUANA ELVIS Start: 03-23-2020 INCENTIVE SPIROMETRY RT JUANA ELVIS Start: 03-23-2020 Fluoroscopy during operation Juana HNelli Leal Work Phone: Start: 03-23-2020 PULSE OXIMETRY SPOT [...] 04-13-2020 Influenza vaccination Flu vaccine (# 1) [place], [place] Start: 04-09-2020 End: 04-09-2020 Office Visit 04/09/2020 Office Visit Neurosurgery Juana Leal MD [address], [address] [place] [address] [employer] Start: 2017 Screening for malign ant neoplasm of colon Colon cancer screen colonoscopy [place], [place] Start: 2017 Shingles Vaccine (1 of 2) Delgado gles Vaccine (1 of 2) [place], [place] Start: 2007 Lipid panel Lipid screen [place], [place] Start: 1986 DTaP/Tdap/Td vaccine (1 - Tdap) DTaP/Tdap/Td vaccine (1 - Tdap) [place], [place] Start: 1982 HIV screening HIV screen [place], [place] Incentive spirometry Incentive s pirometry Respiratory Care Routine Every 2hr while awake until discontinued starting 03/23/2020 [place] Comment on above: Every 2hr while awak e until discontinued starting 03/23/2020 End: 03-23-2020 Intermittent pulse oximetry Pulse Oximetry Spot Check Respiratory Care Routine One Time for 1 Occurrences starting 03/23/2020 until 03/23/2020 [place] Comment on above: One Time for 1 Occur rences starting 03/23/2020 until 03/23/2020 Oxygen therapy Initiate Oxygen Therapy Protocol Respiratory Care Routine Daily until discontinued starting 03/23/2020 [place] Comment on above: Daily until disconti nued starting 03/23/2020 Phase I & II - meter ed glucose Phase I & II - metered glucose Point of Care Testing Routine As Needed until discontinued starting 03/23/2020 [place] Comment on above: As Needed until disc ontinued starting 03/23/2020 Surgical Pathology Surgical Path ology Lab Routine Release Upon Ordering for 1 Occurrences starting 03/23/2020 [place] Comment on above: Release Upon Orderin g for 1 Occurrences starting 03/23/2020 Payers Date Payer Category Payer Self-pay 2024 Unknown [id number] 2018 Unknown [id number] 1965 Unknown [id number] 2.16.8 [id number] 1965 Unknown [id number] 2.16.8 [id number] 1965 Unknown [id number] 2.16.84 [id number] 1965 Unknown [id number] 2.16.84 [id number] 1957 Private Health Insurance [id number] 1957 Unknown [id number] Unknown [id number] [id number] [id number] Unknown [id number] 2.16.8 [id number] Social History Date Type Detail Facility Start: 03-23-2020 End: 03-24-2020 Tobacco smoking status NHIS Former smoker [place], [place] History of tobacco use Cigar Smoker [place] Start: 03-23-2020 End: 03-24-2020 Tobacco use and exposure Never used [employer] [facility], ARCHANA Sex Assigned At Not on file [employer] Exposure to SARS-CoV -2 (event) Not sure [employer] Start: 1965 Sex Assigned At Male [facility] Clinical Note 01-26-2022 Note Date & Type [...] authenticated by: SANJUANITA GASTON Date: 2022-01-26 17:15 [facility] Evaluation note Note Date & Type Note Facility Evaluation note No assessment information availa [facility] Work Phone: Evaluation note Note Date & Type Note Facility Evaluation note Diagnosis Onset Date Bursitis of right elbow acut e [facility] Work Phone: Summary Purpose Family History No Family History Records FoundNo Family History Records FoundNo Family History Records FoundNo Family History Records FoundNo Family History Records Found Advance Directives No Advanced Directives Records FoundDocuments on File Type Date 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 The 24- hour phone is [phone] 13) If you are unable to contact your surgeon, in an emergency situation, go to the nearest hospital emergency room. 14) no driving 15) shower on Sunday * Attachments The following attachments cannot be sent through Care Everywhere. * Coronavirus Disease (COVID-19): General Info (Swazi) documented in this encounter History of Present Illness * Kacey Espinoza RN - 03/23/2020 5:48 PM EDT [...] Fluoro For Surgical Procedures Juana Leal MD [address], [address] [place] [address] Chief Complaint and Reason for Visit Chief Complaint right elbow pain M25.521 - Pain in right elbow Chief Complaint right elbow pain M25.521 - Pain in right elbow Reason for Visit Bursitis of right el bow Additional Source Comments (unrecognized sect ion and content) No Status Records FoundNo Status Records FoundNo Status Records FoundNo Status Records FoundNo Status Records Found INFORMATION SOURCE (unrecogn ized section and content) DATE CREATED AUTHOR 12[place]14/[place] [facility] DATE CREATED AUTHOR AUTHOR'S ORGANIZ ATION 03/20/2020 [facility] DATE CREATED AUTHOR AUTHOR'S ORGANIZ ATION 03/26/2020 [facility] DATE CREATED AUTHOR AUTHOR'S ORGANIZ ATION 01/28/2022 [facility] DATE CREATED AUTHOR AUTHOR'S ORGANIZ ATION 03/17/2024 [facility] Reason for Visit (unrecogniz ed section and content) Status Reason Specialty Diagnoses / Procedures Referre d By Contact Referred To Contact Diagnoses Lumbar disc herniation LUMBAR DISC HERNIATION Procedures MI LAMNOTMY INCL W/DCMPRSN NRV ROOT 1 INTRSPC LUMBR L 4-5 LEFT DISKECTOMY 1 HOUR/ 1 C-ARM ([facility]) Juana Leal MD [address], [address] [place] [address] [facility] Care Teams (unrecognized sec tion and content) Team Status: Active Member Role Status Elin Dupont MD Primary Care Provider Active Team Status: Inactive Member Role Status Elin Dupont MD Primary Care Provider Active Start: March 15, 2024 End: March 15, 2024 Celina Moody APRN Attending Provider Active S tart: March 15, 2024 End: March 15, 2024 Team Status: Active Member Role Status Elin Dupont MD Primary Care Provider Active Start: March 15, 2024 Celina Moody APRN Attending Provider Active S tart: March 15, 2024 Goals (unrecognized section and content) Goals may be documented in a n alternate sectionGoals may be documented in an alternate section FOR RECORDS PERTAINING TO PATIENTS WHO ARE [...] BE BASED ON THE PRIMARY CLINICAL RECORDS. [facility] [employer] [facility]. provides no warranty or guarantee of the accuracy or completeness of information in this document.
== END 2024-11-11 11:21 | disposition home or self-care (01) ==
PROVIDERS: PCP Family Medicine; Visit Provider Family Medicine
DX: M23.90 Unspecified internal derangement of unspecified knee (principal); M85.88 Other specified disorders of bone density and structure, other site
CPT/HCPCS: 73562

== ENCOUNTER 2024-11-28 06:35 | Outpatient (OUT) | payer BC, SELFPAY ==
--- NOTE | 2024-11-28 06:38 | MR_ITS ---
[address] [address] Patient Name: UZIEL REDDY MRN: [id number] date: 1965 Sex: M Assigned Patient Location: MRI Current Patient Location: MRI Accession/Order Number: [id number] Exam Date: 11/28/2024 15:42 Report Date: 11/28/2024 15:53 At the request of: SINAI CAIN MD Procedure: MR knee LT wo con MRI of the leftKnee without contrast TECHNIQUE: Multiplanar T1 and T2-weighted imaging of the knee obtained without contrast HISTORY: Chronic knee pain. No injury. Worsening pain starting 2 months ago. COMPARISON:None BONE MARROW: No infiltrative changes. BONE MARROW EDEMA: Subchondral bone marrow edema. No bony contusion. FRACTURE: No linear fracture BONE TUMOR: None BONY ALIGNMENT: Mild degenerative subluxation DEGENERATION: Marginal spurring. 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 Mild adjacent soft tissue edema present. Component of rupture may be present. ANTERIOR CRUCIATE LIGAMENT: Disruption and heterogeneous signal changes consistent with tear. This may be chronic. POSTERIOR CRUCIATE LIGAMENT: Intact. Mild heterogeneous signal changes, nonspecific. LATERAL COMPARTMENT: LATERAL MENISCUS: The anterior horn not well defined and may be absent. This may correlate with prior surgery or degenerative changes. This may correspond with chronic tear. No obvious fragment present. Marked thinning of the body which may be degenerative. The posterior horn intact.. LATERAL ARTICULAR CARTILAGE: Marked thinning of the condyle and tibial plateau consistent with degenerative changes.. Associated subarticular bone marrow and cystic change. No osteochondral defect. PROXIMAL TIBIOFIBULAR JOINT: Adequate alignment. Mild adjacent subchondral cystic change. POSTERIOR LATERAL COMPARTMENT: There is thickening of the lateral collateral ligament complex. May represent chronic finding. Popliteus tendon intact. Biceps femoris tendon intact. COMMON PERONEAL NERVE: Intact MEDIAL COMPARTMENT: MEDIAL MENISCUS: There is marked thinning of the body may be degenerative. Posterior and anterior horns intact. There is no articular surface tear present. Marginal spurring. MEDIAL ARTICULAR SURFACE: Diffuse chondromalacia likely degenerative. Underlying bone marrow edema. No osteochondral defect. POSTERIOR MEDIAL COMPARTMENT: Medial collateral ligament complex intact. The semimembranosus tendon intact. No ramp lesion of the posterior horn of medial meniscus present. PATELLOFEMORAL COMPARTMENT: PATELLOFEMORAL ARTICULAR CARTILAGE: Degenerative thinning. Mild subchondral edema ANTERIOR LIGAMENTS: Patellar ligament and quadriceps tendon are intact. MR/MR knee LT wo con IMPRESSION: Extensive tricompartmental degenerative changes. Findings of the menisci suggesting degenerative change. Correlate prior surgery. Possible chronic tears. No acute appearing meniscal tear. Degenerative chondromalacia. Underlying bone marrow edema and cystic change. No osteochondral defect. Large joint effusion. Disruption of the ACL. Consideration for tear. This may be chronic. Large popliteal cyst with possible rupture. Impression dictated by: Martín Jimenez M.D.11/28/2024 3:53 PM Dictation Location: [place] [address] Electronically authenticated by: [id number] Y Date: 11/28/2024 15:53
--- OUTSIDE RECORDS SUMMARY | 2024-11-28 06:38 | XMS_ITS | CCD ---
Author Organization [facility] [employer] Care Team Providers Care Clinical Staff Rn Name Role Phone HECTOR SHETH Admitting Unavailable HECTOR SHETH Attending Unavailable HECTOR SHETH Consulting Unavailable Sinai Dupont Primary Care Provider JUANA LEAL Admitting Unavailable JUANA LEAL Attending Unavailable SINAI DUPONT Primary Care Unavailable JUANA LEAL Attending Unavailable JUANA LEAL HNelli Referring Unavailable SINAI DUPONT Primary Care Unavailable MARKER, DR KIM Admitting Unavailable PAYTON, DR RAWLS Primary Care Unavailable MARKER, DR KIM Consulting Unavailable MARKER, DR KIM Attending Unavailable HOY, DR RAWLS Consulting Unavailable HOY, DR RAWLS Attending Unavailable HOY, DR RAWLS Admitting Unavailable PATYON, DR RAWLS Primary Care Unavailable ZIEBER, DR SANJUANITA Monte Consulting Unavailable MD Sinai Dupont Primary Care Provider LEIWS Moody Attending Provider Celina Moody Admitting Unavailable [...] Daily 3 March 15, 2024 12:00am sennosides, long term 8.6 mg oral tablet (2 sources) Start: [...] 3V*on 2023 XR elbow RT min 3V* [facility] [place] [address] [place] [address] XRay Report Signed Patient: Uziel Reddy MR#: [id number] : 1965 Acct:[id number] Age/Sex: 58 / M ADM Date: 03/15/24 Loc: XDUCLY Room: Type: [facility] Attending Dr: Celina Moody APRN Copies to: [...] Martín Jimenez M.D.03/15/2024 1:14 PM Dictation Location: [place] [address] Transcribed By: [facility] 03/15/24 1314 Dictated By: Martín Jimenez DO 03/15/24 1313 Signed By: 03/15/24 1314 Normal [facility] FLUORO FOR SURGICAL [...] Martín Benoit MD 03/23/20 Final result Normal [facility] FLUORO FOR SURGICAL PROCEDURES : 03/23/2020 2:56 PM CLINICAL HISTORY: R52 Pain ICD10. COMPARISON: None available. Intraoperative fluoroscopy was provided for Dr. Elvis calix. A total of 5.4 seconds of fluoroscopy was used, with 2 fluoroscopic stills saved. No diagnostic images were obtained. Please see Dr. Leal surgical notes for completeness. [place] Brendan, Chpo Incoming Radiant Results From [employer] - 03/23/2020 4:37 PM EDT FLUORO FOR SURGICAL PROCEDURES : 03/23/2020 2:56 PM CLINICAL HISTORY: R52 Pain ICD10. COMPARISON: None available. Intraoperative fluoroscopy was provided for Dr. Elvis calix. A total of 5.4 seconds of fluoroscopy was used, with 2 fluoroscopic stills saved. No diagnostic images were obtained. Please see Dr. Leal surgical notes for completeness. [place] Surgical Specimenon 03-23-20 Surgical Specimen [facility] [address] [place] [address] FINAL SURGICAL PATHOLOGY REPORT Patient Name: UZIEL REDDY Accession No: [id number] Age Sex: 1965 [facility] Account No: [id number] Collected: 03/23/2020 Med Rec No: [id number] Received: 03/24/2020 Attend Phys: JUANA LEAL Completed: [...] in one cassette following decalcification. ZHOU/MERRILL CPT: 23709 X1 38545 X1 KENDALL DELGADO M.D. 03/26/2020 Electronically signed out by Page 1 of 1 [facility] Comment on above: Performed By: #### S UR #### [facility] [address] [place] [address] COVID-19, NAAon 03-20-2020 COVID-19, LAINEY Not Detected Normal Not Detect [facility] Comment on above: Result Comment: This test was developed and its performance characteristics determined by [employer]. This test has not been FDA cleared [...] detected) result in this assay. Performed at: [facility], [place] [id number] Risk Investigator: Maris Vallejo MD, Phone: [phone] Performed By: #### I RCOV #### [facility] [address] [place] [address] Basic Metabolic Panelon Anion gap [Moles/Vol] 10 mmol/L Normal 9-15 [facility] Comment on above: Performed By: #### B MP #### [facility] [address] [place] [address] Calcium [Mass/Vol] 9.7 mg/dL Normal 8.5-9.9 [facility] Comment on above: Performed By: #### B MP #### [facility] [address] [place] [address] Chloride [Moles/Vol] 96 mmol/L Normal 95-107 [facility] Comment on above: Performed By: #### B MP #### [facility] [address] [place] [address] CO2 [Moles/Vol] 30 mmol/L Normal 20-31 [facility] Comment on above: Performed By: #### B MP #### [facility] [address] [place] [address] Creatinine [Mass/Vol] 0.66 mg/dL Low 0.70-1.20 [facility] Comment on above: Performed By: #### B MP #### [facility] [address] [place] [address] GFR/1.73 sq M predicted among blacks MDRD (S/P/Bld) [Vol rate/Area] mL/min/{1.73_m2} Normal >60 [facility] Comment on above: Result Comment: >60 mL/min/1.73m2 EGFR, calc. for ages 18 and older using the MDRD formula (not corrected for weight), is valid for stable renal function. Performed By: #### B MP #### [facility] [address] [place] [address] GFR/1.73 sq M.predicted MDRD (S/P/Bld) [Vol rate/Area] mL/min/{1.73_m2} Normal >60 [facility] Comment on above: Result Comment: >60 mL/min/1.73m2 EGFR, calc. for ages 18 and older using the MDRD formula (not corrected for weight), is valid for stable renal function. Performed By: #### B MP #### [facility] [address] [place] [address] Glucose [Mass/Vol] 83 mg/dL Normal 70-99 [facility] Comment on above: Performed By: #### B MP #### [facility] [address] [place] [address] Potassium [Moles/Vol] 4.3 mmol/L Normal 3.4-4.9 [facility] Comment on above: Performed By: #### B MP #### [facility] [address] [place] [address] Sodium [Moles/Vol] 136 mmol/L Normal 135-144 [facility] Comment on above: Performed By: #### B MP #### [facility] [address] [place] [address] Urea nitrogen [Mass/Vol] 14 mg/dL Normal 6-20 [facility] Comment on above: Performed By: #### B MP #### [facility] [address] [place] [address] CBC With Platelet and Differ entialon 03-17-2020 RBC morphology finding Nom (Bld) Normal Normal [facility] Comment on above: Performed By: #### C BCWD #### [facility] [address] [place] [address] Atypical Lymphs 5 % Normal [facility] Comment on above: Performed By: #### C BCWD #### [facility] [address] [place] [address] Basophils (Bld) [#/Vol] 0.0 10*3/uL Normal 0.0-0.2 [facility] Comment on above: Performed By: #### C BCWD #### [facility] [address] [place] [address] Basophils/100 WBC (Bld) 0.6 % Normal [facility] Comment on above: Performed By: #### C BCWD #### [facility] [address] [place] [address] Eosinophils (Bld) [#/Vol] 0.1 10*3/uL Normal 0.0-0.7 [facility] Comment on above: Performed By: #### C BCWD #### [facility] [address] [place] [address] Eosinophils/100 WBC (Bld) 1.0 % Normal [facility] Comment on above: Performed By: #### C BCWD #### [facility] [address] [place] [address] Lymphocytes (Bld) [#/Vol] 1.4 10*3/uL Normal 1.0-4.8 [facility] Comment on above: Performed By: #### C BCWD #### [facility] [address] [place] [address] Lymphocytes/100 WBC (Bld) 7.0 % Normal [facility] Comment on above: Performed By: #### C BCWD #### [facility] [address] [place] [address] Monocytes (Bld) [#/Vol] 1.0 10*3/uL Critically high 0.2-0.8 [facility] Comment on above: Performed By: #### C BCWD #### [facility] [address] [place] [address] Monocytes/100 WBC (Bld) 9.0 % Normal [facility] Comment on above: Performed By: #### C BCWD #### [facility] [address] [place] [address] Neutrophils (Bld) [#/Vol] 8.9 10*3/uL Critically high 1.4-6.5 [facility] Comment on above: Performed By: #### C BCWD #### [facility] [address] [place] [address] Neutrophils/100 WBC (Bld) 78.0 % Normal [facility] Comment on above: Performed By: #### C BCWD #### [facility] [address] [place] [address] Platelet Slide Review Normal Normal [facility] Comment on above: Performed By: #### C BCWD #### [facility] [address] [place] [address] Smudge Cells 9.9 Normal [facility] Comment on above: Performed By: #### C BCWD #### [facility] [address] [place] [address] Erythrocyte distribution width (RBC) [Ratio] 14.0 % Normal 11.5-14.5 [facility] Comment on above: Performed By: #### C BCWD #### [facility] [address] [place] [address] Hematocrit (Bld) [Volume fraction] 47.7 % Normal 42.0-52.0 [facility] Comment on above: Performed By: #### C BCWD #### [facility] [address] [place] [address] Hemoglobin (Bld) [Mass/Vol] 15.6 g/dL Normal 14.0-18.0 [facility] Comment on above: Performed By: #### C BCWD #### [facility] [address] [place] [address] MCH (RBC) [Entitic mass] 29.7 pg Normal 27.0-31.3 [facility] Comment on above: Performed By: #### C BCWD #### [facility] [address] [place] [address] MCHC (RBC) [Mass/Vol] 32.8 % Low 33.0-37.0 [facility] Comment on above: Performed By: #### C BCWD #### [facility] [address] [place] [address] MCV (RBC) [Entitic vol] 90.7 fL Normal 80.0-100.0 [facility] Comment on above: Performed By: #### C BCWD #### [facility] [address] [place] [address] Platelets (Bld) [#/Vol] 320 10*3/uL Normal 130-400 [facility] Comment on above: Performed By: #### C BCWD #### [facility] [address] [place] [address] RBC (Bld) [#/Vol] 5.26 10*6/uL Normal 4.70-6.10 [facility] Comment on above: Performed By: #### C BCWD #### [facility] [address] [place] [address] WBC (Bld) [#/Vol] 11.4 10*3/uL Critically high 4.8-10.8 [facility] Comment on above: Performed By: #### C BCWD #### [facility] [address] [place] [address] COVID-19, NAAon 03-17-2020 Source Swab OP swab Normal [facility] Comment on above: Performed By: #### I RCOV #### [facility] [address] [place] [address] Partial Thromboplastin Timeo n 03-17-2020 aPTT Coag (Bld) [Time] 32.3 s Normal 24.4-36.8 [facility] Comment on above: Performed By: #### P TT #### [facility] [address] [place] [address] Prothrombin Timeon 0 INR Coag (PPP) [Relative time] 1.0 {INR} Normal [facility] Comment on above: Performed By: #### P T #### [facility] [address] [place] [address] PT Coag (PPP) [Time] 12.9 s Normal 12.3-14.9 [facility] Comment on above: Performed By: #### P T #### [facility] [address] [place] [address] Type and 3 cell Screen OB Ca ptureon 03-17-2020 Type and 3 cell Screen OB Capture PATIENT: BARRY Amezcua LOC: [facility], BILL# : [id number] : 1965 SEX: M ORDERED BY: ERIC MILY Prachi ORDERED : 03/17/2020 13:03 COLLECTED: 03/17/2020 13:04 ORDER : [id number] RECEIVED : 03/17/2020 20:34 TEST NAME RESULT UNITS RANGES ABN FL ST ABORH Capture O POS F Antibody 3 Cell Scrn Captu NEG F Normal [facility] Comment on above: Performed By: #### T SO3C #### [facility] [address] [place] [address] Vital Signs Date Time Vital Sign Value Performing Clinician Facility 03-15-2024 12:25-0400 Body height 182.88 cm MD Sinai Dupont Work Phone: [facility] 03-15-2024 12:25-0400 Body mass index (BMI) [Ratio] 35.2 kg/m2 MD iSnai Dupont Work Phone: [facility] 03-15-2024 12:25-0400 Body temperature 98.4 [degF] MD Sinai Dupont Work Phone: [facility] 03-15-2024 12:25-0400 Body weight 117.93 kg MD Sinai Dupont Work Phone: [facility] 03-15-2024 12:25-0400 Diastolic blood pressure 80 mm[Hg] MD Sinai Dupont Work Phone: [facility] 03-15-2024 12:25-0400 Heart rate 66 /min MD Sinai Dupont Work Phone: [facility] 03-15-2024 12:25-0400 Respiratory rate 16 /min MD Sinai Dupont Work Phone: [facility] 03-15-2024 12:25-0400 SaO2% (BldA) [Mass fraction] 97 % MD Sinai Dupont Work Phone: [facility] 03-15-2024 12:25-0400 Systolic blood pressure 121 mm[Hg] MD Sinai Dupont Work Phone: [facility] 03-23-2020 17:15-0400 BP Diastolic 79 mm[Hg] [facility] [place] [facility] [place] 03-23-2020 17:15-0400 BP Systolic 132 mm[Hg] Juana Elvis [employer] 03-23-2020 17:15-0400 Pulse (Heart Rate) 63 /min Juana Elvis [facility] [place] 03-23-2020 17:15-0400 Pulse Oximetry 96 % [facility] [place] [facility] [place] 03-23-2020 17:15-0400 Respiratory Rate 20 /min Juana [employer] [facility] [facility] [place] 03-23-2020 16:30-0400 Body Temperature 98.29 [degF] Juana [facility] 03-23-2020 10:46-0400 BMI (Body Mass Index) 36.62 kg/m2 Juana Elvis [facility] [place] 03-23-2020 10:46-0400 Body weight 122.47 kg [facility] [place] [facility] [place] 03-23-2020 10:46-0400 Height 182.9 cm Juana Elvis [employer] Encounters Encounter Date Encounter Type Care Provider Facility Start: 03-15-2024 End: 03-15-2024 ambulatory MD Sinai Dupont Work Phone: [facility] Work Phone: Start: 03-15-2024 End: 03-15-2024 Patient encounter procedure MD Sinai Dupont Work Phone: [facility] Work Phone: Start: 03-15-2024 End: 03-15-2024 ambulatory MD Sinai Dupont Work Phone: [facility] Work Phone: Start: 03-15-2024 End: 03-15-2024 Patient encounter procedure MD Sinai Dupont Work Phone: [facility] Work Phone: Start: 01-26-2022 End: 01-27-[address] SINAI DUPONT Facility:[facility] Start: 03-15-2021 End: 03-16-[address] JUDY ONEILL Facility:[facility] Start: 03-23-2020 End: 03-23-2020 Patient encounter procedure [facility] Start: 03-23-2020 End: 03-23-2020 Subsequent hospital visit by physician Juana Leal Work Phone: [facility] Comment on above: Postoperative pain ( Primary Dx) Start: 03-23-2020 End: 03-26-2020 Patient encounter procedure [facility] Start: 03-23-2020 End: 03-25-2020 Subsequent hospital visit by physician Juana Leal Work Phone: [facility] Comment on above: Pain Start: [...] O ELVIS Start: 03-23-2020 NOTIFY PHYSICIAN (SPECIFY) JUAAN ELVIS Start: 03-23-2020 NURSING COMMUNICATION B O ELVIS Start: 03-23-2020 VITAL SIGNS JUANA ELVIS Plan of Treatment Date Care Activity Detail Author Start: 04-13-2020 Influenza vaccination Flu vaccine (# 1) [place] Start: 04-09-2020 End: 04-09-2020 Office Visit 04/09/2020 Office Visit Neurosurgery Juana Leal MD [address], [address] [place] [address] [employer]. Start: 2017 Screening for malign ant neoplasm of colon Colon cancer screen colonoscopy [place] Start: 2017 Shingles Vaccine (1 of 2) Delgado gles Vaccine (1 of 2) [place] Start: 2007 Lipid panel Lipid screen [place], [place] Start: 1986 DTaP/Tdap/Td vaccine (1 - Tdap) DTaP/Tdap/Td vaccine (1 - Tdap) [place] Start: 1982 HIV screening HIV screen [place], [place] Incentive spirometry Incentive s pirometry Respiratory Care Routine Every 2hr while awake until discontinued starting 03/23/2020 [place] Comment on above: Every 2hr while awak e until discontinued starting 03/23/2020 End: 03-23-2020 Intermittent pulse oximetry Pulse Oximetry Spot Check Respiratory Care Routine One Time for 1 Occurrences starting 03/23/2020 until 03/23/2020 [place] Comment on above: One Time for 1 Occur rences starting 03/23/2020 until 03/23/2020 Oxygen therapy Initiate Oxygen Therapy Protocol Respiratory Care Routine Daily until discontinued starting 03/23/2020 [place] Comment on above: Daily until disconti nued starting 03/23/2020 Phase I & II - meter ed glucose Phase I & II - metered glucose Point of Care Testing Routine As Needed until discontinued starting 03/23/2020 [place] Comment on above: As Needed until disc ontinued starting 03/23/2020 Surgical Pathology Surgical Path ology Lab Routine Release Upon Ordering for 1 Occurrences starting 03/23/2020 [place] Comment on above: Release Upon Orderin g for 1 Occurrences starting 03/23/2020 Payers Date Payer Category Payer Self-pay 2024 Unknown [id number] 2018 Unknown [id number] 1965 Unknown [id number] 2.16.8 [id number] 1965 Unknown [id number] 2.16.8 [id number] 1965 Unknown [id number] 2.16.84 [id number] 1965 Unknown [id number] 2.16.84 [id number] 1957 Private Health Insurance [id number] 1957 Unknown [id number] Unknown [id number] 2.16.8 [id number] Unknown [id number] 2.16.8 [id number] Social History Date Type Detail Facility Start: 03-23-2020 End: 03-24-2020 Tobacco smoking status NHIS Former smoker [place] History of tobacco use Cigar Sm[place] Start: 03-23-2020 End: 03-24-2020 Tobacco use and exposure Never used [employer] H, ARCHANA Sex Assigned At Not on file [employer] Exposure to SARS-CoV -2 (event) Not sure [employer] Start: 1965 Sex Assigned At Male F [facility] Clinical Note 01-26-2022 Note Date & Type [...] authenticated by: SANJUANITA GASTON Date: 2022-01-26 17:15 [facility] Evaluation note Note Date & Type Note Facility Evaluation note No assessment information availa 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 The 24- hour phone is [phone] 13) If you are unable to contact your surgeon, in an emergency situation, go to the nearest hospital emergency room. 14) no driving 15) shower on Sunday * Attachments The following attachments cannot be sent through Care Everywhere. * Coronavirus Disease (COVID-19): General Info (Kazakh) documented in this encounter History of Present [...] For Surgical Procedures Juana Leal MD [address], [address] [place] [address] Chief Complaint and Reason for Visit Chief [...] section and content) DATE CREATED AUTHOR 12/14/2018 [facility] DATE CREATED AUTHOR AUTHOR'S ORGANIZ ATION 03/20/2020 [facility] DATE CREATED AUTHOR AUTHOR'S ORGANIZ ATION 03/26/2020 [facility] DATE CREATED AUTHOR AUTHOR'S ORGANIZ ATION 01/28/2022 [facility] DATE CREATED AUTHOR AUTHOR'S ORGANIZ ATION 03/17/2024 [facility] ysician Group Reason for Visit (unrecogniz ed section and content) Status Reason Specialty Diagnoses / Procedures Referre d By Contact Referred To Contact Diagnoses Lumbar disc herniation LUMBAR DISC HERNIATION Procedures FL LAMNOTMY INCL W/DCMPRSN NRV ROOT 1 INTRSPC LUMBR L 4-5 LEFT DISKECTOMY 1 HOUR/ 1 C-ARM ([facility]) Juana Leal MD [address], [address] [place] [address] [facility] Care Teams (unrecognized sec tion and [...] BE BASED ON THE PRIMARY CLINICAL RECORDS. [facility] [employer] [facility]. provides no warranty or guarantee of the accuracy or completeness of information in this document.
== END 2024-11-28 06:36 | disposition home or self-care (01) ==
LOC: MRI 06:35
PROVIDERS: PCP Family Medicine; Visit Provider Family Medicine
DX: M23.92 Unspecified internal derangement of left knee (principal); M71.22 Synovial cyst of popliteal space [Baker], left knee; M25.462 Effusion, left knee
CPT/HCPCS: 73721